=== PATIENT | female | born 1985 | race Caucasian/White ===

== ENCOUNTER → 2017-03-30 08:58 | Outpatient (CLI) | payer OTHER | END | disposition home or self-care (01) | LOC: D.US 08:58 | DX: R10.9 Unspecified abdominal pain (principal); R11.0 Nausea ==

== ENCOUNTER → 2018-10-23 17:05 | Outpatient (CLI) | payer OTHER ==
[2018-10-23 17:51] LABS: UDS - AMPHET NEGATIVE QUAL (NEGATIVE); UDS - BARB NEGATIVE QUAL (NEGATIVE); UDS - BENZO POSITIVE QUAL (NEGATIVE); UDS - COCAINE NEGATIVE QUAL (NEGATIVE); UDS - OPIATE POSITIVE QUAL (NEGATIVE); UDS - PCP NEGATIVE QUAL (NEGATIVE); UDS - THC NEGATIVE QUAL (NEGATIVE)
== END | disposition home or self-care (01) ==
LOC: D.LABREF 17:05
PROVIDERS: ATTEND Obstetrics & Gynecology
DX: O09.91 Supervision of high risk pregnancy, unspecified, first trimester (principal); Z3A.00 Weeks of gestation of pregnancy not specified

== ENCOUNTER → 2018-12-30 11:07 | Outpatient (CLI) | payer OTHER | END | disposition home or self-care (01) | LOC: D.US 11:07 | PROVIDERS: ATTEND Obstetrics & Gynecology Gynecology | DX: O09.519 Supervision of elderly primigravida, unspecified trimester (principal); O99.340 Other mental disorders complicating pregnancy, unspecified trimester; F41.8 Other specified anxiety disorders ==